=== PATIENT | female | born 1945 | race Caucasian/White ===

== ENCOUNTER → 2020-10-26 13:42 | Outpatient (CLI) | payer MEDICARE, SELFPAY ==
--- NOTE | 2020-10-26 | DI.MRI.S_ITS ---
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 After the administration of contrast, axial/sagittal/coronal T1 spin echo with fat saturation through the pelvis . COMPARISON: [facility] Outside Film, RG, PELVIS COMP MIN 3VW, 08/14/2019, 10:04. [facility] Outside Film, RG, PELVIS COMP MIN 3VW, 07/03/2019, 12:27. [facility]O Outside Film, RG, PELVIS COMP MIN 3VW, 05/22/2019, 10:36. [facility] Outside Film, CT, CT PELVIS WITHOUT CONTRAST, 04/02/2019, 9:52. FINDINGS: Image quality: Excellent. Bones: The visualized bone marrow demonstrates normal signal on all sequences however prior transverse orthopedic fixation crossing the sacrum and posterior iliac bones results in metal artifact degrading quality of visualization of the marrow space in the sacral area. The presacral soft tissues are visualized and free of an identifiable mass. The overlying cortex appears intact. No abnormal intraosseous enhancement. Soft tissues: No soft tissue masses are visualized. Note is made of a ventral hernia to the right of midline at approximately the axial level of the anterior superior iliac spines, containing bowel loops that protrude through approximately a 3.5 cm body wall defect. There is no sign of incarceration or strangulation involving the bowel loops currently present in the subcutaneous fat. The scanned muscles demonstrate normal overall bulk and internal signal. Subcutaneous tissues appear normal as well otherwise. No abnormal soft tissue enhancement. Note is made of an ovoid fluid collection lateral to the greater trochanter of the right hip, most likely evidence of chronic access bursal fluid. Immediate adjacent inflammation is not associated, and this conceivably could represent an unusual manifestation of a synovial protrusion from the right hip. IMPRESSION: Prior pelvic transverse fixation screws result in metal artifact that degrades quality of visualization in the presacral space. When all pulse sequences are combined, however, the presacral space is relatively well visualized and appears free of a mass lesion in that area. Synovial protrusion versus bursal excess fluid appears present lateral to the greater trochanter of the right hip. This fluid collection measures approximately 4.7 cm craniocaudad, 3.0 cm AP and 3.7 cm transverse. Right paramedian ventral hernia is noted at the area near the junction of the abdomen and pelvis, through a 3.5 cm body wall defect. No sign of incarceration or strangulation at this time. Dictated by: Raul Vu M.D. on 10/26/2020 at 16:16 Approved by: Raul Vu M.D. on 10/26/2020 at 16:24
== END ==
PROVIDERS: PCP Physician Assistant Medical; Referring Provider Colon & Rectal Surgery; Visit Provider Colon & Rectal Surgery
DX: R19.09 Other intra-abdominal and pelvic swelling, mass and lump (principal); K43.9 Ventral hernia without obstruction or gangrene
CPT/HCPCS: 72197